=== PATIENT | male | born 1990 | race Caucasian/White ===

== ENCOUNTER 2017-11-20 12:03 | Emergency (ER) | payer OTHER, MEDICAID ==
[2017-11-20] MEDS: SOD CHLORIDE 0.9% 1,000 ML IV (12:41)
[2017-11-20] MEDS: morphine 4 MG/ML VIAL IV (12:42)
[2017-11-20] MEDS: ONDANSETRON 4 MG INJ IV (12:42)
[2017-11-20 12:47] LABS: ADD MAN DIFF? NO
[2017-11-20] MEDS: ASPIRIN 81 MG TAB PO (12:47)
[2017-11-20 12:49] LABS: WHITE BLOOD COUNT 15.2 10^3/ul (4.8-10.8)
[2017-11-20 12:49] LABS: ABNORMAL IP MESSAGE 1; BASOPHILS % 0.3 % (0.0-2.0); EOSINOPHILS % 0.1 % (0.0-7.0); HEMATOCRIT 31.4 % (42.0-52.0); HEMOGLOBIN 9.1 g/dl (14.0-18.0); LYMPHOCYTES # 5.6 10^3/ul (0.8-2.9); MEAN CORPUSCULAR HEMOGLOBIN 19.7 pg (29.0-33.0); MEAN CORPUSCULAR VOLUME 67.8 fl (82.0-101.0); MEAN PLATELET VOLUME 10.1 fl (7.4-10.4); MONOCYTE # 1.1 10^3/ul (0.3-0.9); MONOCYTES % 7.4 % (0.0-11.0); NEUTROPHIL # 8.3 10^3/ul (1.6-7.5); NEUTROPHILS % 54.9 % (39.0-77.0); NUCLEATED RED BLOOD CELLS # 0.1 10^3/ul (0.0-0.0); NUCLEATED RED BLOOD CELLS% 0.4 /100WBC (0.0-0.0); PLATELET COUNT 286 10^3/UL (140-415); POSITIVE DIFF @See below; RED BLOOD COUNT 4.63 10^6/ul (4.70-6.10); RED CELL DISTRIBUTION WIDTH 19.7 % (11.5-14.5)
[2017-11-20 13:07] LABS: ANION GAP 18 (8-16); BLOOD UREA NITROGEN 10 mg/dl (7-20); CALCIUM 9.2 mg/dl (8.4-10.2); CARBON DIOXIDE 26 mmol/L (21-31); CHLORIDE 101 mmol/L (97-110); CREATININE 0.97 mg/dl (0.61-1.24); GLUCOSE 174 mg/dl (70-220); POTASSIUM 3.7 mmol/L (3.5-5.1); SODIUM 141 mmol/L (135-144)
[2017-11-20 13:16] LABS: D-DIMER 400.84 ng/ml (<460)
[2017-11-20 13:26] LABS: TROPONIN-I < 0.012 ng/ml (0.00-0.12)
== END 2017-11-20 15:00 | disposition home or self-care (01) ==
LOC: E/R 12:03
DX: R07.9 Chest pain, unspecified (principal); D64.9 Anemia, unspecified; R00.0 Tachycardia, unspecified; E66.9 Obesity, unspecified; F17.210 Nicotine dependence, cigarettes, uncomplicated; R40.2142 Coma scale, eyes open, spontaneous, at arrival to emergency department; R40.2252 Coma scale, best verbal response, oriented, at arrival to emergency department; R40.2362 Coma scale, best motor response, obeys commands, at arrival to emergency department
CPT/HCPCS: 36415; 71045; 80048; 84484; 85025; 85378; 86850; 86900; 86901; 93005; 93970; 96374; 96375; 99285-25

== ENCOUNTER 2018-01-07 17:23 | Emergency (ER) | payer OTHER ==
[2018-01-07] MEDS: DEXAMETHASONE 10 MG/ML 1 ML INJ IV (17:53)
[2018-01-07] MEDS: DIPHENHYDRAMINE 50 MG INJ IV (17:53)
[2018-01-07] MEDS: SOD CHLORIDE 0.9% 1,000 ML IV (17:55)
[2018-01-07] MEDS: ONDANSETRON 4 MG INJ IV (19:16)
[2018-01-07] MEDS: LORAZEPAM 1 MG TAB PO (19:16)
== END 2018-01-07 21:12 | disposition home or self-care (01) ==
LOC: FTE 17:23
DX: T78.3XXA Angioneurotic edema, initial encounter (principal); Z87.891 Personal history of nicotine dependence
CPT/HCPCS: 96374; 96375; 99284-25

== ENCOUNTER 2018-02-03 09:56 | Emergency (ER) | payer OTHER ==
[2018-02-03] MEDS: LORAZEPAM 1 MG TAB PO (10:53)
[2018-02-03] MEDS: FAMOTIDINE 20 MG TAB PO (10:53)
[2018-02-03] MEDS: ONDANSETRON (ODT) 4 MG TAB ODT (10:56)
[2018-02-03] MEDS: hydrOXYzine HCL 25 MG TAB PO (10:58)
[2018-02-03 11:01] LABS: ADD MAN DIFF? NO
[2018-02-03 11:04] LABS: WHITE BLOOD COUNT 17.8 10^3/ul (4.8-10.8)
[2018-02-03 11:04] LABS: ABNORMAL IP MESSAGE 1; BASOPHILS % 0.1 % (0.0-2.0); HEMATOCRIT 31.5 % (42.0-52.0); HEMOGLOBIN 8.1 g/dl (14.0-18.0); LYMPHOCYTES # 2.3 10^3/ul (0.8-2.9); LYMPHOCYTES % 12.6 % (15.0-51.0); MEAN CORPUSCULAR HGB CONC 25.7 g/dl (32.0-37.0); MEAN CORPUSCULAR VOLUME 66.2 fl (82.0-101.0); MEAN PLATELET VOLUME 9.9 fl (7.4-10.4); MONOCYTE # 1.1 10^3/ul (0.3-0.9); NEUTROPHIL # 14.4 10^3/ul (1.6-7.5); NEUTROPHILS % 80.8 % (39.0-77.0); NUCLEATED RED BLOOD CELLS # 0.1 10^3/ul (0.0-0.0); NUCLEATED RED BLOOD CELLS% 0.4 /100WBC (0.0-0.0); PLATELET COUNT 392 10^3/UL (140-415); POSITIVE DIFF @See below; RED BLOOD COUNT 4.76 10^6/ul (4.70-6.10); RED CELL DISTRIBUTION WIDTH 21.6 % (11.5-14.5)
[2018-02-03 11:12] LABS: URINE BLOOD (Dip) POC Negative (NEGATIVE); URINE GLUCOSE (Dip) POC Negative (NEGATIVE); URINE KETONES (Dip) POC Negative (NEGATIVE); URINE LEUKOCYTE EST (Dip) POC Negative (NEGATIVE); URINE NITRITE (Dip) POC Negative (NEGATIVE); URINE TOTAL PROTEIN POC Negative (NEGATIVE)
[2018-02-03 11:21] LABS: ALANINE AMINOTRANSFERASE 56 IU/L (13-69); ALBUMIN 4.1 g/dl (3.3-4.9); ALKALINE PHOSPHATASE 140 IU/L (42-121); ANION GAP 15 (8-16); ASPARTATE AMINO TRANSFERASE 46 IU/L (15-46); BLOOD UREA NITROGEN 12 mg/dl (7-20); CALCIUM 9.2 mg/dl (8.4-10.2); CARBON DIOXIDE 27 mmol/L (21-31); CHLORIDE 109 mmol/L (97-110); CREATININE 0.82 mg/dl (0.61-1.24); GLUCOSE 124 mg/dl (70-220); LIPASE 100 U/L (23-300); POTASSIUM 4.4 mmol/L (3.5-5.1); SODIUM 147 mmol/L (135-144); TOTAL PROTEIN 7.8 g/dl (6.1-8.1)
== END 2018-02-03 12:46 | disposition home or self-care (01) ==
LOC: FTE 09:56
DX: K52.9 Noninfective gastroenteritis and colitis, unspecified (principal); F10.10 Alcohol abuse, uncomplicated; Z87.891 Personal history of nicotine dependence
CPT/HCPCS: 74176; 80053; 81003; 83690; 85025; 99284-25

== ENCOUNTER 2018-05-31 17:00 | Emergency (ER) | payer OTHER ==
[2018-05-31 18:07] LABS: ADD MAN DIFF? NO
[2018-05-31 18:14] LABS: WHITE BLOOD COUNT 14.7 10^3/ul (4.8-10.8)
[2018-05-31 18:14] LABS: ABNORMAL IP MESSAGE 1; HEMATOCRIT 27.7 % (42.0-52.0); HEMOGLOBIN 7.2 g/dl (14.0-18.0); MEAN CORPUSCULAR HEMOGLOBIN 16.7 pg (29.0-33.0); MEAN CORPUSCULAR VOLUME 64.4 fl (82.0-101.0); NUCLEATED RED BLOOD CELLS% 0.7 /100WBC (0.0-0.0); PLATELET COUNT 247 10^3/UL (140-415); POSITIVE DIFF @See below
[2018-05-31] MEDS: SOD CHLORIDE 0.9% 1,000 ML IV (18:22)
[2018-05-31] MEDS: LORAZEPAM 2 MG INJ IV (18:24)
[2018-05-31 18:38] LABS: ALANINE AMINOTRANSFERASE 35 IU/L (13-69); ALBUMIN 4.2 g/dl (3.3-4.9); ALBUMIN/GLOBULIN RATIO 1.02; ALKALINE PHOSPHATASE 92 IU/L (42-121); ANION GAP 16 (8-16); ASPARTATE AMINO TRANSFERASE 80 IU/L (15-46); BILIRUBIN,INDIRECT 0.7 mg/dl (0-1.1); BILIRUBIN,TOTAL 0.7 mg/dl (0.2-1.3); BLOOD UREA NITROGEN 15 mg/dl (7-20); CALCIUM 8.8 mg/dl (8.4-10.2); CARBON DIOXIDE 23 mmol/L (21-31); CHLORIDE 106 mmol/L (97-110); CREATININE 0.97 mg/dl (0.61-1.24); GLUCOSE 104 mg/dl (70-220); LIPASE 118 U/L (23-300); POTASSIUM 4.9 mmol/L (3.5-5.1); SODIUM 140 mmol/L (135-144); TOTAL PROTEIN 8.3 g/dl (6.1-8.1)
[2018-05-31 18:48] LABS: TROPONIN-I < 0.012 ng/ml (0.000-0.120)
[2018-05-31 19:13] LABS: ANISOCYTOSIS 3+ (0-0); ERYTHROBLAST% (NRBC) (M) 1 % (0-0); HYPOCHROMASIA 2+ (0-0); LYMPHOCYTES % (M) 21 % (15-51); MICROCYTOSIS 3+ (0-0); MONOCYTE #M 0.5 10^3/ul (0.3-0.9); MONOCYTES % (M) 4 % (0-11); PLATELET ESTIMATE NORMAL; POIKILOCYTOSIS 1+ (0-0); SEGMENTED NEUTROPHILS (M) % 75 % (39-77); SMUDGE%M 45 % (0-0); TEAR DROP CELLS 1+ (0-0)
== END 2018-05-31 19:34 | disposition home or self-care (01) ==
LOC: E/R 17:00
DX: F15.10 Other stimulant abuse, uncomplicated (principal); D64.9 Anemia, unspecified; F10.10 Alcohol abuse, uncomplicated; R45.1 Restlessness and agitation; Z87.891 Personal history of nicotine dependence
CPT/HCPCS: 36415; 80053; 80307; 82962; 83690; 84484; 85025; 93005; 96361; 96374; 99284-25